=== PATIENT | male | born 1955 | race Caucasian/White ===

== ENCOUNTER 2017-09-22 21:34 | Emergency (ER) | payer SELFPAY ==
[~2017-09-22] VITALS: Ht 165.1 cm; Wt 85.0 kg
[~2017-09-22 21:34] MED LIST: IBUP800T23 PO; METH750T2 PO
[2017-09-22 21:35] VITALS: BP 178/84; PULSE 113; RESP 16; TEMP 98.9; O2SAT 95
[2017-09-22] MEDS ORDERED: PRED-503 PO (22:26)
[2017-09-22] MEDS ORDERED: VENTAER INH (22:26)
--- NOTE | 2017-09-22 22:26 | PD ---
HPI Chief Complaint: Respiratory Symptoms Time Seen by Provider: 22:19 Travel History International Travel<30 days: No Contact w/Intl Traveler<30days: No Traveled to known affect area: No History of Present Illness HPI 62-year-old male, with history of asthma, presents to the emergency department with complaint of chest tightness and shortness of breath since yesterday. Reports wheezing, nasal congestion, cough, subjective fevers since yesterday also. Denies chest pain, abdominal pain, vomiting. Denies ear pain or sore throat. Denies history of DVT/PE. Denies recent surgeries. Denies leg edema. Has tried using his albuterol inhaler but says is old and has not been helping his symptoms. He is also taking [place] for symptom management. No known aggravating or relieving factors. Allergies to penicillin. Does not have establish primary care provider. History of asthma. Has no other medical complaints. No other modifying factors or associated signs or symptoms. PFSH Past Medical History Asthma: Yes Diabetes: Yes Patient Takes Glucophage: No Respiratory: Yes (asthma) Immunizations Current: Yes Tetanus Vaccination: Unknown Influenza Vaccination: No Social History Alcohol Use: Yes (occ) Tobacco Use: No Substance Use: No Allergies-Medications (Allergen,Severity, Reaction): Coded Allergies: penicillin G (Unverified Allergy, Severe, 09/22/17) Reported Meds & Prescriptions Reported Meds & Active Scripts Active Ventolin Hfa 18 GM Inh (Albuterol Sulfate) 90 Mcg/Act Aer 2 Puff INH Q4-6H PRN Deltasone (Prednisone) 20 Mg Tab 40 Mg PO DAILY 4 Days start 09/23/2017 Review of Systems Except as stated in HPI: all other systems reviewed are Neg Physical Exam Narrative GENERAL: Well-nourished, well-developed male patient, in no acute distress; afebrile, nontoxic-appearing SKIN: Warm and dry. HEAD: Atraumatic. Normocephalic. EYES: Pupils equal and round. No scleral icterus. No injection or drainage. ENT: Mucosa pink and moist. No erythema or exudates. No uvular edema. No uvular , palatal, or tonsillar deviation. Airway patent. Nares without nasal blood, purulent drainage. EARS: Bilateral pinnae and external canals appear within normal limits. Bilateral tympanic membranes without erythema, dullness or perforation. NECK: Trachea midline. No lymphadenopathy. CARDIOVASCULAR: Regular rate and rhythm. No murmur appreciated. RESPIRATORY: No accessory muscle use. Lungs with Wheezing throughout to auscultation. Breath sounds equal bilaterally. No retractions or tachypnea. No Audible wheezing noted. Persistent Dry cough. GASTROINTESTINAL: Abdomen soft, non-tender, nondistended. Hepatic and splenic margins not palpable. Bowel sounds are active 4 quadrants. MUSCULOSKELETAL: No obvious deformities. No clubbing. No cyanosis. No edema. NEUROLOGICAL: Awake and alert. Oriented 3. No obvious cranial nerve deficits. Motor grossly within normal limits. Normal speech. Moves all extremities. 5/5 strength to all extremities. PSYCHIATRIC: Appropriate mood and affect; insight and judgment normal. Data Data Last Documented VS Vital Signs Date Time Temp Pulse Resp B/P (MAP) Pulse Ox O2 Delivery O2 Flow Rate FiO2 09/22/17 21:35 98.9 113 16 178/84 (115) 95 Room Air Orders Orders Chest, Single Ap (09/22/17 22:19) Prednisone (Deltasone) (09/22/17 22:30) Albuterol-Ipratropium Neb (Duoneb Neb) (09/22/17 22:30) Influenzae A/B Antigen (09/22/17 22:19) MDM Medical Decision Making Medical Screen Exam Complete: Yes Emergency Medical Condition: Yes Medical Record Reviewed: Yes Differential Diagnosis Pneumonia, viral illness, asthma exacerbation, influenza, less likely PE Narrative Course 62-year-old male with cough/cold/flu symptoms since yesterday. History of asthma and is having shortness of breath and chest tightness. Reports subjective fevers. He is afebrile and nontoxic-appearing in the ER. I discussed the patient with Dr. Becker, my attending physician, and she agrees with my plan of care. Chest x-ray, DuoNeb, Deltasone, influenza [facility] See [facility] for final patient disposition. Med/Other Pt SpecificInfo: Prescription(s) given Scripts Albuterol 18 GM Inh (Ventolin Hfa 18 GM Inh) 90 Mcg/Act Aer 2 PUFF INH Q4-6H Y for SOB/WHEEZING, #1 INHALER 0 Refills Prov: Wendy Call LIBRARY TECHNICAL ASSISTANT 09/22/17 Prednisone (Deltasone) 20 Mg Tab 40 MG PO DAILY for 4 Days, #8 TAB 0 Refills start 09/23/2017 Prov: Wendy Call 09/22/17 Wendy Call Sep 22, 2017 22:26
[2017-09-22] MEDS ORDERED: predniSONE 20 MG TAB PO ONE (22:30)
[2017-09-22] MEDS: RESP: ALBUTEROL 2.5 MG/IPRATROPIUM 0.5 MG NEB (SCH) INH (22:35)
--- NOTE | 2017-09-22 23:14 | PD ---
Physical Exam Date Seen by Provider: Sep 22, 2017 Time Seen by Provider: 23:11 Narrative Accepted in transfer of care GENERAL: Well-developed well-nourished male receiving updraft nebulized treatment SKIN: Warm and dry. HEAD: Normocephalic. EYES: No scleral icterus. No injection or drainage. NECK: Supple, trachea midline. No JVD or lymphadenopathy. CARDIOVASCULAR: Regular rate and rhythm without murmurs, gallops, or rubs. RESPIRATORY: Breath sounds equal bilaterally diminished with extremely wheezes. No accessory muscle use. GASTROINTESTINAL: Abdomen soft, non-tender, nondistended. MUSCULOSKELETAL: No cyanosis, or edema. BACK: Nontender without obvious deformity. No CVA tenderness. Data Data Last Documented VS Vital Signs Date Time Temp Pulse Resp B/P (MAP) Pulse Ox O2 Delivery O2 Flow Rate FiO2 09/22/17 21:35 98.9 113 16 178/84 (115) 95 Room Air Orders Orders Chest, Single Ap (09/22/17 22:19) Prednisone (Deltasone) (09/22/17 22:30) Albuterol-Ipratropium Neb (Duoneb Neb) (09/22/17 22:30) Influenzae A/B Antigen (09/22/17 22:19) Oseltamivir (Tamiflu) (09/22/17 23:15) Benzonatate (Tessalon) (09/22/17 23:30) Sodium Chlor 0.9% 1000 Ml Inj (Ns 1000 M (09/23/17 00:00) Acetaminophen (Tylenol) (09/23/17 00:00) MDM Medical Record Reviewed: Yes Supervised Visit with LIBIA: Yes Interpretation(s) flu ag:(+) A cxr: nad Differential Diagnosis Dyspnea exacerbation asthma viral syndrome influenza bronchitis pneumonia Narrative Course 62-year-old male with history of asthma and presently with wheezing and cough and shortness of breath and report of subjective fever but myalgias and arthralgia flu test ordered positive for influenza chest x-ray pending DuoNeb updrafts administered along with steroid therapy Patient being treated for exacerbation of asthma and now with diagnosis of influenza will start patient on Tamiflu in the emergency department as symptoms began yesterday. Diagnosis Primary Impression: Influenza A Additional Impression: Exacerbation of asthma Referrals: Primary Care Physician call for appointment Patient Instructions: General Instructions Departure Forms: Tests/Procedures, Work Release Special Instructions: no work x 5 days Additional Instruction: Increase fluid hydration Take acetaminophen/Tylenol every 4 hours as needed for fever 100.4F or greater or for minor pain Take ibuprofen/Advil/Motrin 600 mg as often as every 6 hours as needed for fever 100.4F or greater Complete course of Tamiflu Use inhaler as prescribed as needed for shortness of breath or wheezing Complete course of steroid as prescribed Follow-up with her primary care provider No work 5 days or as long as you have an active fever 100.4F or greater Return to the emergency for for any concerns or change in condition May use over the counter cough and cold medications per package directions Med/Other Pt SpecificInfo: Prescription(s) given Scripts Oseltamivir (Tamiflu) 75 Mg Cap 75 MG PO BID for Mgmt Viral Infection for 5 Days, #10 CAP 0 Refills Prov: Emilee Becker MD 09/22/17 Albuterol 18 GM Inh (Ventolin Hfa 18 GM Inh) 90 Mcg/Act Aer 2 PUFF INH Q4-6H Y for SOB/WHEEZING, #1 INHALER 0 Refills Prov: Wendy Call 09/22/17 Prednisone (Deltasone) 20 Mg Tab 40 MG PO DAILY for 4 Days, #8 TAB 0 Refills start 09/23/2017 Prov: Wendy Call 09/22/17 Disposition: 01 DISCHARGE HOME Condition: Stable Emilee Becker MD Sep 22, 2017 23:14
[2017-09-22] MEDS ORDERED: OSELTAMIVIR PHOSPHATE 75 MG CAP PO ONE (23:15)
--- NOTE | 2017-09-22 23:15 | RADRPT ---
EXAM DATE/TIME: 09/22/2017 22:55 [facility] COMPARISON: No previous studies available for comparison. INDICATIONS : Patient complains of cough and shortness of breath. MEDICAL HISTORY : None. SURGICAL HISTORY : None. ENCOUNTER: Initial ACUITY: 3 days PAIN SCORE: 0/10 LOCATION: chest FINDINGS: 2 AP views of the chest. The lungs are clear. Cardiomediastinal silhouette within normal limits. No e vidence of pleural effusion or pneumothorax. CONCLUSION: No acute cardiopulmonary disease identified. Jose A Hernandez MD on September 22, 2017 at 23:12 Board Certified Radiologist. This report was verified electronically.
[2017-09-22] MEDS ORDERED: OSEL75 PO (23:18)
[2017-09-22] MEDS ORDERED: BENZONATATE 100 MG CAP PO ONE (23:30)
[2017-09-23] MEDS ORDERED: SODIUM CHLOR 0.9% 1000 ML INJ 1,000 ML IV ONE
[2017-09-23] MEDS ORDERED: ACETAMINOPHEN 325 MG TAB PO ONE
== END 2017-09-23 01:00 | disposition home or self-care (01) ==
LOC: NEPC 21:34
DX: J09.X2 Influenza due to identified novel influenza A virus with other respiratory manifestations (principal); J45.901 Unspecified asthma with (acute) exacerbation; E11.9 Type 2 diabetes mellitus without complications; Z88.0 Allergy status to penicillin; Z79.51 Long term (current) use of inhaled steroids
CPT/HCPCS: 71010; 87804; 94640; 94664; 99284; J7030; J7512

== ENCOUNTER 2017-10-14 13:21 | Emergency (ER) | payer SELFPAY ==
[~2017-10-14] VITALS: Ht 167.6 cm; Wt 90.5 kg
[~2017-10-14 13:21] MED LIST changes: -IBUP800T23 PO; -METH750T2 PO; +OSEL75 PO; +PRED-503 PO; +VENTAER INH
[2017-10-14 13:22] VITALS: BP 172/77; PULSE 109; RESP 16; TEMP 97.8; O2SAT 95
[2017-10-14] MEDS ORDERED: predniSONE 20 MG TAB PO ONE (13:45)
--- NOTE | 2017-10-14 13:52 | PD ---
HPI Chief Complaint: Cold / Flu Symptoms Time Seen by Provider: 13:34 Travel History International Travel<30 days: No Contact w/Intl Traveler<30days: No Traveled to known affect area: No History of Present Illness HPI 62-year-old male presents to the emergency Department with complaint of cough for the past 2-3 days and feeling like his throat is closing up when coughing only. Reports history of asthma. Reports chest tightness and short of breath. He was seen here on September 22 and diagnosed with influenza and was given albuterol inhaler and Deltasone. He has been using his albuterol inhaler with no symptom relief. Reports subjective fevers. Reports nausea without vomiting. No known aggravating or relieving factors. History of asthma. No primary care provider. Allergies to penicillin. Denies tobacco use. Has no other medical complaints. No other modifying factors or associated signs and symptoms. PFSH Past Medical History Asthma: Yes Diabetes: Yes Patient Takes Glucophage: No Respiratory: Yes (asthma) Immunizations Current: Yes Tetanus Vaccination: < 5 Years Social History Alcohol Use: Yes (occ) Tobacco Use: No Substance Use: No Allergies-Medications (Allergen,Severity, Reaction): Coded Allergies: penicillin G (Unverified Allergy, Severe, 09/22/17) Reported Meds & Prescriptions Reported Meds & Active Scripts Active Tessalon Perles (Benzonatate) 100 Mg Cap 100 Mg PO TID PRN 3 Days Deltasone (Prednisone) 20 Mg Tab 40 Mg PO DAILY 4 Days start 10/15/2017 Ventolin Hfa 18 GM Inh (Albuterol Sulfate) 90 Mcg/Act Aer 2 Puff INH Q4-6H PRN Review of Systems Except as stated in HPI: all other systems reviewed are Neg Physical Exam Narrative GENERAL: Well-nourished, well-developed male patient, in no acute distress; afebrile, nontoxic-appearing SKIN: Warm and dry. No rash. HEAD: Atraumatic. Normocephalic. EYES: Pupils equal and round. No scleral icterus. No injection or drainage. ENT: Mucosa pink and moist. No erythema or exudates. No uvular edema. No uvular , palatal, or tonsillar deviation. Airway patent. EARS: Bilateral pinnae and external canals appear within normal limits. Bilateral tympanic membranes without erythema, dullness or perforation. NECK: Trachea midline. No lymphadenopathy. CARDIOVASCULAR: Regular rate and rhythm. No murmur appreciated. RESPIRATORY: No accessory muscle use. Clear to auscultation. Breath sounds equal bilaterally. No retractions or tachypnea. Persistent dry cough. GASTROINTESTINAL: Abdomen soft, non-tender, nondistended. Hepatic and splenic margins not palpable. Bowel sounds are active 4 quadrants. MUSCULOSKELETAL: No obvious deformities. No clubbing. No cyanosis. No edema. NEUROLOGICAL: Awake and alert. Oriented 3. No obvious cranial nerve deficits. Motor grossly within normal limits. Normal speech. Moves all extremities. 5/5 strength to all extremities. PSYCHIATRIC: Appropriate mood and affect; insight and judgment normal. Data Data Last Documented VS Vital Signs Date Time Temp Pulse Resp B/P (MAP) Pulse Ox O2 Delivery O2 Flow Rate FiO2 10/14/17 15:07 10/14/17 13:22 97.8 109 16 95 Orders Orders Chest, Single Ap (10/14/17 13:34) Prednisone (Deltasone) (10/14/17 13:45) Lorazepam (Ativan) (10/14/17 14:00) Albuterol-Ipratropium Neb (Duoneb Neb) (10/14/17 14:00) Ed Discharge Order (10/14/17 15:05) [facility] Medical Decision Making Medical Screen Exam Complete: Yes Emergency Medical Condition: Yes Medical Record Reviewed: Yes Differential Diagnosis cough, throat irritation, anxiety, asthma exacerbation Narrative Course 62-year-old male with cough and feeling like his throat is closing up. When he has coughing he appears to become anxious. When he is at rest and without coughing he is calm and in no acute distress. His oxygen saturation is 100% on room air. His lung sounds are clear and equal throughout. He has been using albuterol inhaler frequently. I re-educated the patient on albuterol inhaler and instructed to use it as prescribed. I asked Dr. Salinas to evaluate the patient. 1354: Dr. Aguilar evaluated the patient and recommended Ativan, 1 DuoNeb treatment, Deltasone, and chest x-ray. 1500: Chest x-ray concludes: Chest X-Ray 10/14/17 1334 Signed Impressions: Service Date/Time: Saturday, October 14, 2017 14:02 - CONCLUSION: Cardiomegaly. No acute cardiopulmonary disease. Dhiraj Pedroza MD Findings discussed with the patient. Patient coughing exacerbations have decreased while in the ER. He reports improvement in symptoms. Denies feeling short of breath on reexamination. Lung sounds continued to be clear and equal throughout. Azithromycin, Ventolin Inh, and Tessalon Perles prescribed for home. Instructed patient to follow up with primary care provider. Patient verbalizes understanding and agreement with treatment plan. Patient is medically cleared and stable for discharge. Discussed reasons to return to the emergency department. Patient agrees with treatment plan. The patients vital signs are stable and the patient is stable for outpatient follow-up and treatment. Patient discharged home, stable and in no acute distress. Diagnosis Primary Impression: Cough Referrals: [facility] Primary Care Physician Patient Instructions: Acute Bronchitis (ED), Acute Cough (ED), General Instructions Additional Instructions: Use Albuterol inhaler as prescribed Take oral steroids as prescribed and complete full course Use Tessalon Perles as prescribed to decrease coughing spasms Tuoe-woa-frmpapo decongestants or antihistamines as directed and as needed for symptom management Your cough can last 4-6 weeks Drink plenty of fluids to prevent dehydration Use hot air humidifier to decrease cough exacerbation Turn off ceiling fans and sleep with head of bed elevated Avoid triggers such as second hand smoke, dust, known allergens Follow-up with your primary care provider Return to the emergency department immediately with worsening of symptoms Med/Other Pt SpecificInfo: Prescription(s) given Scripts Benzonatate (Tessalon Perles) 100 Mg Cap 100 MG PO TID Y for COUGH for 3 Days, CAP 0 Refills Prov: Wendy Call 10/14/17 Prednisone (Deltasone) 20 Mg Tab 40 MG PO DAILY for 4 Days, #8 TAB 0 Refills start 10/15/2017 Prov: Wendy CallP 10/14/17 Albuterol 18 GM Inh (Ventolin Hfa 18 GM Inh) 90 Mcg/Act Aer 2 PUFF INH Q4-6H Y for SOB/WHEEZING, #1 INHALER 0 Refills Prov: Wendy Call 10/14/17 Disposition: 01 DISCHARGE HOME Condition: Stable Wendy Call Oct 14, 2017 13:52
[2017-10-14] MEDS ORDERED: LORazepam 1 MG TAB PO ONE (14:00)
[2017-10-14] MEDS ORDERED: RESP: ALBUTEROL 2.5 MG/IPRATROPIUM 0.5 MG NEB (SCH) INH ONE (14:00)
--- NOTE | 2017-10-14 14:45 | RADRPT ---
EXAM DATE/TIME: 10/14/2017 14:02 [facility] COMPARISON: CHEST SINGLE AP, September 22, 2017, 22:55. INDICATIONS : Cough. MEDICAL HISTORY : None. SURGICAL HISTORY : None. ENCOUNTER: Initial ACUITY: 1 week PAIN SCORE: 0/10 LOCATION: Bilateral chest FINDINGS: The cardiac silhouette is enlarged in transverse diameter. The lungs are free of acute parenchymal op acity. No effusions are identified. Osseous structures are intact. CONCLUSION: Cardiomegaly. No acute cardiopulmonary disease. Dhiraj Pedroza MD on October 14, 2017 at 14:43 Board Certified Radiologist. This report was verified electronically.
[2017-10-14] MEDS ORDERED: VENTAER INH (15:03)
[2017-10-14] MEDS ORDERED: PRED-503 PO (15:03)
[2017-10-14] MEDS ORDERED: BENZ100 PO (15:03)
== END 2017-10-14 15:10 | disposition home or self-care (01) ==
LOC: NEPD 13:21
DX: R05 Cough (principal); I51.7 Cardiomegaly; J45.909 Unspecified asthma, uncomplicated; E11.9 Type 2 diabetes mellitus without complications; Z88.0 Allergy status to penicillin
CPT/HCPCS: 71045; 94664; 99284; J7512